=== PATIENT | female | born 1980 | race Caucasian/White ===

== ENCOUNTER 2019-02-28 22:56 | Emergency (ER) | payer BC ==
[~2019-02-28] VITALS: Ht 177.8 cm; Wt 70.3 kg
[2019-02-28] MEDS ORDERED: ASPIRINA (23:28)
[2019-03-01] MEDS ORDERED: VOLTAREN-XR100 MG PO (03:57)
[2019-03-01] MEDS ORDERED: PERCOCET 5-3251 EACH PO (03:57)
== END 2019-03-01 04:06 | disposition home or self-care (01) ==
LOC: ER 22:56
DX: S62.623A Displaced fracture of middle phalanx of left middle finger, initial encounter for closed fracture (principal); W22.8XXA Striking against or struck by other objects, initial encounter; Y93.89 Activity, other specified; Y92.89 Other specified places as the place of occurrence of the external cause; Y99.8 Other external cause status